=== PATIENT | female | born 1980 | race Caucasian/White ===

== ENCOUNTER 2018-10-02 01:00 | Emergency (ER) | payer MEDICAID ==
--- NOTE | 2018-10-02 01:28 | EDM.PDOC ---
ED HPI GENERAL MEDICAL PROBLEM - General Chief Complaint: Upper Extremity Injury/Pain Stated Complaint: RIGHT RING FINGER RING STUCK ON IT CANT Time Seen by Provider: 10/02/18 01:12 Source of Information: Reports: Patient History Limitations: Reports: No Limitations - History of Present Illness INITIAL COMMENTS - FREE TEXT/NARRATIVE: The patient presents with edema to her right ring finger and she cannot get her ring off. She is 18 weeks and she has been having some edema. Her blood pressure is good here. She had her rings off for a few days and she put it back on and now she cannot get her ring off. She has some tingling and numbness or her finger. Onset: Gradual Duration: Day(s): Location: Reports: Upper Extremity, Right (ring finger) Quality: Reports: Sharp Severity: Moderate Improves with: Reports: None Worsens with: Reports: None Associated Symptoms: Reports: No Other Symptoms Right Finger-Ring Pain Score (Numeric/FACES): 8 - Related Data Allergies Allergy/AdvReac Type Severity Reaction Status Date / Time No Known Allergies Allergy Verified 10/02/18 01:08 Home Meds: Home Meds PNV95/Ferrous Fumarate/FA [ Vitamin Tablet] 1 tab PO DAILY 10/02/18 [ History] Past Medical History - Past Health History Medical/Surgical History: Denies Medical/Surgical History Social & Family History - Family History Family Medical History: Noncontributory - Tobacco Use Smoking Status *Q: Never Smoker - Caffeine Use Caffeine Use: Reports: None - Recreational Drug Use Recreational Drug Use: No Review of Systems - Review of Systems Review Of Systems: See Below Constitutional: Reports: No Symptoms Eyes: Reports: No Symptoms Ears: Reports: No Symptoms Nose: Reports: No Symptoms Mouth/Throat: Reports: No Symptoms Respiratory: Reports: No Symptoms Cardiovascular: Reports: No Symptoms GI/Abdominal: Reports: No Symptoms Genitourinary: Reports: No Symptoms Musculoskeletal: Reports: Other (sandra, pain and numnbess to the right ring finger with the ring still on) ED EXAM, GENERAL - Physical Exam Exam: See Below Exam Limited By: No Limitations General Appearance: Alert, No Apparent Distress Ears: Normal External Exam Nose: Normal Inspection Head: Atraumatic Neck: Normal Inspection Respiratory/Chest: No Respiratory Distress Extremities: Other (Moderate edema to the right ring finger with decreased sensation and increased capillary refill distal to a ring.) Course - Vital Signs Last Recorded V/S: Last Vital Signs Temp 98.4 F 10/02/18 01:09 Pulse 89 10/02/18 01:09 Resp 16 10/02/18 01:09 BP 122/72 10/02/18 01:09 Pulse Ox 99 10/02/18 01:09 - Re-Assessments/Exams Free Text/Narrative Re-Assessment/Exam: 10/02/18 01:26 I used the ring cutter to get the ring off. She feels much better. I will discharge her home. Departure - Departure Time of Disposition: : Disposition: Home, Self-Care 01 Condition: Good Clinical Impression: Peripheral edema, Ring or other jewelry causing external constriction, initial encounter Qualifiers: Weeks of gestation: 18 weeks Qualified Code(s): Z3A.18 - 18 weeks gestation of - Discharge Information *PRESCRIPTION DRUG MONITORING PROGRAM REVIEWED*: Not Applicable *COPY OF PRESCRIPTION DRUG MONITORING REPORT IN PATIENT LINSEY: Not Applicable Referrals: PCP,Unknown [Primary Care Provider] - Additional Instructions: Try to elevate your finger above your heart as much as you can for a couple of days. The swelling may take a day or two to go down. If you have more pain or numbness or swelling please return.
== END 2018-10-02 01:39 | disposition home or self-care (01) ==
LOC: JD.ED 01:00
DX: O99.89 Other specified diseases and conditions complicating pregnancy, childbirth and the puerperium (principal); R60.0 Localized edema; W49.04XA Ring or other jewelry causing external constriction, initial encounter; Z3A.18 18 weeks gestation of pregnancy
CPT/HCPCS: 99283

== ENCOUNTER 2019-05-05 11:05 | Emergency (ER) | payer SELFPAY ==
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
--- NOTE | 2019-05-06 09:40 | CR ---
Left knee: AP, lateral and sunrise patellar views of the left knee were obtained. Comparison: No previous knee exam. Medial and lateral joint compartments are maintained in height. No joint effusion is seen. No fracture or other bony abnormality is seen. Impression: 1. No abnormality is appreciated on three-view left knee exam. Diagnostic code #1
== END 2019-05-05 13:25 | disposition home or self-care (01) ==
LOC: JD.ED 11:05
DX: S83.422A Sprain of lateral collateral ligament of left knee, initial encounter (principal); W01.0XXA Fall on same level from slipping, tripping and stumbling without subsequent striking against object, initial encounter
CPT/HCPCS: 73562-26-LT; 73562-LT; 99283-25